=== PATIENT | male | born 1950 | race Caucasian/White ===

== ENCOUNTER 2016-09-18 09:46 | Inpatient (IN) | payer OTHER, MEDICARE ==
[~2016-09-18] VITALS: Ht 170.2 cm; Wt 84.0 kg
[2016-10-17] MEDS ORDERED: SODIUM CHLORIDE 0.9% IV SCH (05:45)
[2016-10-17] MEDS ORDERED: INSULIN HUMAN REGULAR 1,000 UNITS/10 ML VIAL SQ PRN (05:45)
[2016-10-17] MEDS ORDERED: LACTATED RINGER'S 1000 ML IV PRN (05:45)
[2016-10-17] MEDS ORDERED: POVIDONE IODINE 5% (ANTISEPSIS KIT) 4 APPLICATIONS EACH NARE PRN (05:45)
[2016-10-17] MEDS ORDERED: TRANEXAMIC ACID IV SCH (05:45)
[2016-10-17] MEDS ORDERED: CHLORHEXIDINE GLUCONATE 2 % 1 PACK (2 CLOTHS) TOPICAL PRN (05:45)
[2016-10-17] MEDS: CHLORHEXIDINE GLUCONATE 4% SOLN 120 ML BTL TOPICAL SCH (05:45)
[2016-10-17] MEDS ORDERED: VANCOMYCIN 1000 MG/NS 250 ML (for <70 kg) IV SCH ×2 (05:45)
[2016-10-17] MEDS ORDERED: ceFAZolin 2 GM PREMIX 50 ML IV SCH (05:45)
[2016-10-17] MEDS ORDERED: SODIUM CHLORID 0.9% 500 ML IV PRN (05:45)
[2016-10-17] MEDS ORDERED: EXPAREL PERI-ARTICULAR INJECTION (TOTAL VOL. 60 ML) P-ARTICULR SCH ×2 (05:45)
[2016-10-17] MEDS ORDERED: METOPROLOL TARTRATE 25 MG TAB PO PRN (05:45)
[2016-10-17] MEDS ORDERED: HYDR-3533 PO (05:55)
[2016-10-17 05:57] VITALS: BP 150/85; PULSE 55; RESP 20; TEMP 98.1; O2SAT 97
[2016-10-17 06:13] LABS: AUTOMATED NEUTROPHIL # 4.2 TH/MM3 (1.8-7.7); BASOPHIL # 0.1 TH/MM3 (0-0.2); BASOPHIL % 1.1 % (0.0-2.0); EOSINOPHIL # 0.1 TH/MM3 (0-0.4); EOSINOPHIL % 0.9 % (0.0-4.0); HEMATOCRIT 42.4 % (39.0-51.0); HEMO FLAGS DIFF FINAL; LYMPH % 24.9 % (9.0-44.0); LYMPHOCYTE # 1.7 TH/MM3 (1.0-4.8); MEAN CELL VOLUME 85.2 FL (80.0-100.0); MEAN CORPUSCULAR HEMOGLOBIN 30.1 PG (27.0-34.0); MEAN CORPUSCULAR HGB CONC 35.3 % (32.0-36.0); MONO % 9.9 % (0.0-8.0); NEUT % 63.2 % (16.0-70.0); PLATELET COUNT 235 TH/MM3 (150-450); RED BLOOD COUNT 4.98 MIL/MM3 (4.50-5.90); RED CELL DISTRIBUTION WIDTH 15.3 % (11.6-17.2); WHITE BLOOD COUNT 6.7 TH/MM3 (4.0-11.0)
[2016-10-17] MEDS ORDERED: GENTAMICIN SULFATE 80 MG/2 ML VIAL ONE (06:20)
[2016-10-17 06:25] LABS: INTERNATIONAL NORMALIZED RATIO 0.9 RATIO; PROTHROMBIN TIME - PATIENT 10.3 SEC (9.8-11.6)
[2016-10-17 06:30] LABS: BLOOD, URINE NEG (NEG); GLUCOSE,URINE NEG (NEG); KETONE, URINE NEG (NEG); MUCUS URINE FEW /lpf (OCC); NITRITE,URINE NEG (NEG); PH, URINE 6.5 (5.0-8.5); URINE COLOR YELLOW (YELLW/STRAW)
[2016-10-17 06:31] LABS: COMMENT (UR) CULT NOT INDICATED; CULTURE IF INDICATED CULT NOT INDICATED
[2016-10-17] MEDS ORDERED: FAMOTIDINE 20 MG/2 ML VIAL ONE (06:36)
[2016-10-17] MEDS ORDERED: ACETAMINOPHEN 1000 MG/100 ML VIAL IV ONE (06:36)
[2016-10-17] MEDS ORDERED: MIDAZOLAM HCL 2 MG/2 ML VIAL ONE (06:36)
[2016-10-17] MEDS ORDERED: ONDANSETRON HCL 4 MG/2 ML VIAL ONE (06:37)
[2016-10-17 06:51] LABS: BICARBONATE 28.3 MEQ/L (21.0-32.0)
[2016-10-17] MEDS ORDERED: DEXAMETHASONE SOD PHOS 4 MG/ML VIAL ONE (06:52)
--- NOTE | 2016-10-17 09:41 | PD.OP ---
cc: Josias Galindo MD Operative Report Date of Surgery: Oct 17, 2016 Preoperative Diagnosis: Severe right hip osteoarthritis Postoperative Diagnosis: Procedure: Right total hip arthroplasty by anterior approach Anesthesia: Gen. Surgeon: Josias Galindo Informal Waiter/Waitress(s): DON Urrutia PA-C The surgical procedure was assisted by my physician college sports assistant. My P.A. presence was necessary throughout this case for the manipulation and positioning of the surgical extremity. My P.A. was assisting me throughout the duration of this procedure. The skill set of a physician college sports assistant was medically necessary to complete this procedure. During the surgical case the senior pharmacy technician was working at the back table and the physician college sports assistant was directly assisting me. Operation and Findings: PLAN OF ACTIVITY 50% weightbearing right leg DRAINS: 7-mm EFREM drain. IMPLANTS USED DePuy Corail size [13] collared stem with a size [50] Calhoun Gription cup and a [32 +5] ceramic Biolox ceramic head. DETAILS OF PROCEDURE: This patient has a long history of hip pain. Patient was found to have severe osteoarthritis. The patient had radiographic evidence of joint space narrowing with [id number] arthritis and osteophytes around the acetabulum as well as the femoral head. There was also some cystic changes. The patient failed conservative treatment with pain medications, anti-inflammatories, physical therapy, assistive devices including a cane, as well as therapeutic injection of the hip. Patient's hip arthritis was limiting his ability to ambulate and perform activities of daily living. The patient wished to proceed with surgery and informed consent was obtained. Operative site was marked. I discussed both posterior approach and anterior approach with the patient and decision was made for anterior approach. Patient was brought to OR and placed on OR table. IV sedation and general anesthesia was administered by anesthesiologist. Patient positioned on a Katheryn table and was given IV antibiotics. Time-out procedure was performed. The hip and thigh were prepped with alcohol followed by Hibiclens. The thigh was draped in the usual sterile fashion. Clean Air Suite was used for this procedure. The procedure began with a 5-inch incision over the anterolateral thigh. Subcutaneous tissue was dissected with Bovie. The fascia over the tensa fasciae latae was incised. Care was taken to avoid injury to the lateral femoral cutaneous nerve. The tensor muscle was retracted laterally. Sartorius was retracted medially. Retractors were now placed. The reflected head of the rectus is now elevated. A capsulotomy was performed over the anterior head capsule. Sutures were placed to help retract the capsule. At this point the femoral head and neck were identified. With soft tissue protected, oscillating saw was used to make a cut through the femoral neck, the femoral head was now removed. At this point attention was turned to preparation of the acetabulum. The labrum was excised. The acetabulum was sequentially reamed up to size [50]. A Calhoun cup was now placed. Fluoroscopy was used to aid in identification of appropriate version. Cup was fully impacted and found to have excellent fit. Hole eliminator was now placed. The liner was now impacted into the cup. At this point the hip was externally rotated. A hook was placed around the proximal femur. The capsule was released off the lateral and medial femur. The hip was now extended and adducted. Retractors were placed around the proximal femur to allow for exposure. A box osteotome was used to remove the lateral cortex of the femoral neck. A broach was used to help lateralize the prosthesis. Canal finder was used to create a path down the canal. Next, the canal was sequentially broached up to size [13]. This was found to be an excellent fit. Calcar planer was placed. At this point it was noted to have a nondisplaced fracture line extending into the calcar region. At this point soft tissue was carefully retracted. 2 cables were passed around the proximal femur. One cable was placed above the lesser trochanter and a second cable was placed below the lesser trochanter. Cables were tensioned appropriately. A standard head was placed, and the hip was reduced. The hip was found to have excellent stability with good range of motion. The leg lengths were measured under fluoroscopy and found to be equal compared to preoperatively. Trial broach was removed. The size 13 standard Corail stem was opened. Stem was fully impacted into the proximal femur in appropriate version. The femoral head was placed. The hip was again reduced. At this point the cables were fully tensioned, crimped, and cut. Fluoroscopy confirmed excellent alignment of prosthesis. The prosthesis appeared to be stable with excellent fit. The wound was thoroughly irrigated and capsule was closed with #1 Vicryl. The fascia over the tensor fasciae muscle was closed with #1 Vicryl, subcutaneous tissue was closed with 3-0 Vicryl and the skin was closed with paula and Dermabond skin closure. The capsule layers were injected with a mixture of saline and bupivicaine. Dressings were applied. The patient was transferred to Recovery Room in stable condition. Josias Galindo MD Oct 17, 2016 09:41
[2016-10-17] MEDS ORDERED: Post-op Orders (for Pharmacy) MISC XX ONE (09:45)
[2016-10-17] MEDS ORDERED: ONDANSETRON HCL 4 MG/2 ML VIAL IVP PRN (09:45)
[2016-10-17] MEDS ORDERED: SODIUM CHLORIDE 0.9% FLUSH 5 ML FLUSH IVF PRN (09:45)
[2016-10-17] MEDS ORDERED: NALOXONE HCL 0.4 MG/ML AMP IV PRN (09:45)
[2016-10-17] MEDS ORDERED: MORPHINE SULFATE 4 MG/ML INJ IV PUSH PRN (09:45)
[2016-10-17] MEDS ORDERED: DO NOT ADM ANY ANTICOAGULANT DRUGS PRN (10:01)
[2016-10-17] MEDS ORDERED: fentaNYL CITRATE 250 MCG/5 ML AMP ONE (10:14)
[2016-10-17] MEDS ORDERED: MORPHINE SULFATE 4 MG/ML INJ ONE (10:14)
[2016-10-17] MEDS ORDERED: *morphine SULFATE 8 MG/ML PERIprocedure ONLY ONE (10:26)
[2016-10-17] MEDS: LACTATED RINGER'S 1000 ML INJ 1,000 ML IV SCH ×2 (10:30→23:04)
[2016-10-17] MEDS ORDERED: TRANEXAMIC ACID INJ 1,000 MG in SODIUM CHLORIDE 0.9% INJ 100 ML IV ONE (11:00)
--- NOTE | 2016-10-17 11:43 | RADRPT ---
EXAM DATE/TIME: 10/17/2016 11:00 [facility] COMPARISON: No previous studies available for comparison. INDICATIONS : Post operation right hip MEDICAL HISTORY : None. SURGICAL HISTORY : None. ENCOUNTER: Initial ACUITY: 1 day PAIN SCORE: 07/25 LOCATION: Right Hip. FINDINGS: A right total hip arthroplasty is present. There are cerclage wires encircling the proximal femoral s tem. Hardware is intact. Alignment is anatomic. A surgical drain is present. Skin paula are noted l aterally. The visualized pelvis is intact. CONCLUSION: Satisfactory appearance post right ROBIN Vladimir Armstrong MD on October 17, 2016 at 11:41 Board Certified Radiologist. This report was verified electronically.
[2016-10-17] MEDS ORDERED: PROPOFOL 200 MG/20 ML AMP IV ONE (12:00)
[2016-10-17] MEDS ORDERED: ePHEDrine/NS 25 MG/5 ML SYR IV ONE (12:00)
[2016-10-17] MEDS ORDERED: NEOSTIGMINE 3 MG/3 ML SYR IV ONE (12:00)
[2016-10-17] MEDS: ceFAZolin 2 GM PREMIX 50 ML IV SCH ×3 (12:20→23:02)
[2016-10-17] MEDS: KETOROLAC TROMETHAMINE 30 MG/ML (IVP) VIAL IV PUSH SCH ×2 (12:20→23:03)
[2016-10-17 13:03] VITALS: BP 107/71; PULSE 69; RESP 17; TEMP 96.5; O2SAT 97
[2016-10-17] MEDS: VANCOMYCIN INJ 1,000 MG in SODIUM CHLOR 0.9% 250 ML INJ 250 ML IV SCH (13:20)
[2016-10-17] MEDS: oxyCODONE/ACETAMINOPHEN 7.5 MG/325 MG TAB PO PRN ×4 (13:53→23:03)
[2016-10-17 15:43] VITALS: BP 103/67; PULSE 67; RESP 17; TEMP 96.7; O2SAT 95
--- NOTE | 2016-10-17 16:02 | RADRPT ---
EXAM DATE/TIME: 10/17/2016 07:27 [facility] COMPARISON: FLUOROSCOPY PORTABLE UP TO 1HR, October 17, 2016, 0:00. INDICATIONS : Right total hip arthroplasty. OR. MEDICAL HISTORY : None. SURGICAL HISTORY : None. ENCOUNTER: Initial ACUITY: 1 day PAIN SCORE: Non-responsive. LOCATION: Right hip FINDINGS: Intraoperative examination demonstrates right hip arthroplasty. Orthopedic hardware is in excellent p osition. CONCLUSION: 1. Orthopedic hardware in excellent position. Reinaldo Childers MD on October 17, 2016 at 16:00 Board Certified Radiologist. This report was verified electronically.
[2016-10-17 20:20] VITALS: BP 118/69; PULSE 67; RESP 17; TEMP 96.8; O2SAT 96
[2016-10-17] MEDS: SODIUM CHLORIDE 0.9% FLUSH 5 ML FLUSH IVF SCH (21:00)
[2016-10-18] MEDS: VANCOMYCIN INJ 1,000 MG in SODIUM CHLOR 0.9% 250 ML INJ 250 ML IV SCH (00:10)
[2016-10-18] MEDS: CHLORHEXIDINE GLUCONATE 4% SOLN 120 ML BTL TOPICAL SCH (00:12)
[2016-10-18 00:22] VITALS: BP 117/70; PULSE 64; RESP 17; TEMP 97.2; O2SAT 98
[2016-10-18] MEDS: oxyCODONE/ACETAMINOPHEN 7.5 MG/325 MG TAB PO PRN ×7 (02:29→21:05)
[2016-10-18 04:25] VITALS: BP 137/77; PULSE 62; RESP 17; TEMP 97.3; O2SAT 97
--- NOTE | 2016-10-18 06:49 | PD.ORT.PN ---
Subjective Subjective Remarks Pain controlled with no complaints Objective Vitals Vital Signs Date Time Temp Pulse Resp B/P Pulse Ox O2 Delivery O2 Flow Rate FiO2 10/18/16 04:25 97.3 62 17 137/77 97 10/18/16 00:22 97.2 64 17 117/70 98 10/17/16 20:20 96.8 67 17 118/69 96 10/17/16 18:39 Nasal Cannula 2.00 10/17/16 15:43 96.7 67 17 103/67 95 10/17/16 13:03 96.5 69 17 107/71 97 10/17/16 12:00 97.7 80 12 110/75 97 Nasal Cannula 2 10/17/16 11:00 83 10 118/75 97 Nasal Cannula 2 10/17/16 10:45 74 12 135/80 96 Nasal Cannula 2.5 10/17/16 10:30 80 14 116/81 96 Nasal Cannula 2.5 10/17/16 10:15 88 15 143/74 95 Nasal Cannula 2.5 10/17/16 10:00 81 14 150/90 94 Nasal Cannula 2.5 10/17/16 09:56 98.3 88 15 152/88 95 Nasal Cannula 2.5 I/O 10/17/16 10/17/16 10/17/16 10/18/16 10/18/16 10/18/16 07:00 15:00 23:00 07:00 15:00 23:00 Intake Total 600 ml 240 ml 120 ml Output Total 905 ml 570 ml 635 ml Balance -305 ml -330 ml -515 ml Intake Oral 240 ml 120 ml Other 600 ml Output Urine Total 425 ml 500 ml 525 ml Drainage Total 80 ml 70 ml 110 ml Estimated Blood Loss 400 ml # Bowel Movements 0 0 Result Diagram: 10/17/16 0559 10/17/16 0559 Imaging Last 24 hours Impressions Hip and Pelvis X-Ray 10/17/16 0935 Signed Impressions: Service Date/Time: Monday, October 17, 2016 11:00 - CONCLUSION: Satisfactory appearance post right ROBIN Vladimir Armstrong MD Objective Remarks Right lower extremity with clean dressings. Drain intact. Minimal swelling. Intact sensation distally strong dorsiflexion plantar flexion of foot Assessment & Plan Assessment and Plan Right total hip arthroplasty anterior approach POD 1 Physical therapy 50% weightbearing right lower extremity Incentive spirometry Lovenox Case management for plan discharge home with home health care tomorrow Follow-up appointment with Dr. Galindo or PA in 2 weeks Donis Garner Jr. PA Oct 18, 2016 06:49
[2016-10-18 07:13] LABS: HEMATOCRIT 36.1 % (39.0-51.0); REVIEW FLAG FINAL
[2016-10-18 08:00] VITALS: BP 118/71; PULSE 60; RESP 18; TEMP 97.4; O2SAT 92
[2016-10-18] MEDS: ENOXAPARIN SODIUM 40 MG/0.4 ML SYRINGE SQ SCH (08:14)
[2016-10-18] MEDS: SODIUM CHLORIDE 0.9% FLUSH 5 ML FLUSH IVF SCH ×2 (08:17→21:00)
[2016-10-18] MEDS: LACTATED RINGER'S 1000 ML INJ 1,000 ML IV SCH ×2 (10:35→23:05)
[2016-10-18 11:47] VITALS: BP 124/97; PULSE 61; RESP 18; TEMP 97.1; O2SAT 97
[2016-10-18] MEDS: KETOROLAC TROMETHAMINE 30 MG/ML (IVP) VIAL IV PUSH SCH (12:12)
[2016-10-18 15:32] VITALS: BP 145/74; PULSE 58; RESP 19; TEMP 97.2; O2SAT 98
[2016-10-18 20:45] VITALS: BP 131/74; PULSE 59; RESP 16; TEMP 96; O2SAT 94
[2016-10-18] MEDS ORDERED: MAGNESIUM HYDROXIDE SUSP 30 ML CUP PO PRN (21:00)
[2016-10-18] MEDS: DOCUSATE SODIUM 100 MG CAP PO SCH (21:05)
[2016-10-18] MEDS: POLYETHYLENE GLYCOL 17 GM PKG PO SCH (21:53)
[2016-10-19 00:10] VITALS: BP 130/67; PULSE 68; RESP 17; TEMP 97.7; O2SAT 95
[2016-10-19] MEDS: KETOROLAC TROMETHAMINE 30 MG/ML (IVP) VIAL IV PUSH SCH (00:44)
[2016-10-19] MEDS: oxyCODONE/ACETAMINOPHEN 7.5 MG/325 MG TAB PO PRN ×4 (00:47→11:57)
[2016-10-19] MEDS ORDERED: WALKER WHEELS/F1 MIS (06:31)
[2016-10-19] MEDS ORDERED: XARE10TA PO (06:33)
[2016-10-19] MEDS ORDERED: PERC7.5T13 PO (06:33)
--- NOTE | 2016-10-19 06:34 | HHI.FF ---
Face to Face Verification Diagnosis: (1) Status post right hip replacement Physical Therapy Gait training, Safety evaluation Hip: Total hip, Protocol: Right, Posterior hip precautions Right LE Weight Bearing: Partial WB 50% Nursing Dressing Changes: Daily dressing change, Xeroform (begin daily starting POD 10) , Coverderm/Primapore I have seen patient Hernando Cantu on 10/19/16. My clinical findings support the need for the requested home health care services because: Limited ability to care for self I certify that my clinical findings support that this patient is homebound because: Post-op weakness Donis Garner Jr. Oct 19, 2016 06:34
--- NOTE | 2016-10-19 06:39 | PD.ORT.PN ---
Subjective Subjective Remarks POD 2 s/p right ROBIN doing well. out of bed on own. no pain. Objective Vitals Vital Signs Date Time Temp Pulse Resp B/P Pulse Ox O2 Delivery O2 Flow Rate FiO2 10/19/16 00:10 97.7 68 17 130/67 95 10/18/16 22:05 18 10/18/16 20:45 96.0 59 16 131/74 94 10/18/16 19:04 Room Air 10/18/16 15:32 97.2 58 19 145/74 98 10/18/16 11:47 97.1 61 18 124/97 97 10/18/16 08:00 97.4 60 18 118/71 92 10/18/16 07:25 Room Air I/O 10/18/16 10/18/16 10/18/16 10/19/16 10/19/16 10/19/16 07:00 15:00 23:00 07:00 15:00 23:00 Intake Total 120 ml 240 ml 480 ml Output Total 635 ml Balance -515 ml 240 ml 480 ml Intake Oral 120 ml 240 ml 480 ml Output Urine Total 525 ml Drainage Total 110 ml # Voids 1 2 # Bowel Movements 0 0 0 Result Diagram: 10/18/16 0639 10/17/16 0559 Imaging Last 24 hours Impressions Hip and Pelvis X-Ray 10/17/16 0935 Signed Impressions: Service Date/Time: Monday, October 17, 2016 11:00 - CONCLUSION: Satisfactory appearance post right ROBIN Vladimir Armstrong MD Objective Remarks Right lower extremity with clean dressings.Minimal swelling. Intact sensation distally strong dorsiflexion plantar flexion of foot Assessment & Plan Assessment and Plan 1) Right total hip arthroplasty anterior approach POD 2 Physical therapy 50% weightbearing right lower extremity Incentive spirometry Lovenox Case management for plan discharge home with home health care today Follow-up appointment with Dr. Galindo or PA in 2 weeks Tommie Carlson Oct 19, 2016 06:39
--- NOTE | 2016-10-19 06:43 | HHI.DS ---
Discharge Summary Admission Date Oct 17, 2016 at 05:11 Discharge Date: Oct 19, 2016 Admitting Diagnosis right hip OA Diagnosis: (1) Status post right hip replacement Diagnosis: Principal Procedures Right ROBIN - Anterior CBC/BMP: 10/18/16 0639 10/17/16 0559 Significant Findings Laboratory Tests Test 10/17/16 10/17/16 10/18/16 05:50 05:59 06:39 Urine Mucus FEW /lpf (OCC) Monocytes (%) (Auto) 9.9 % (0.0-8.0) Random Glucose 113 MG/DL (74-106) Hemoglobin 12.4 GM/DL (13.0-17.0) Hematocrit 36.1 % (39.0-51.0) PE at Discharge Right lower extremity with clean dressings.Minimal swelling. Intact sensation distally strong dorsiflexion plantar flexion of foot Hospital Course Admitted from outpatient for elective total hip replacement of right hip. Tolerated procedure well. Admitted to . Was out of bed same day of surgery with therapy. Drain was discontinued on POD 1. Pain was controlled, patient was hemodynamically stable, ambulating with minimal assistance, and fit for discharge home with [facility] on POD2. He will remain 50%WB on his right leg, perform daily dressing changes with [facility], keep his incision clean and dry, and follow up in [address] Jusitn or PA in the office. Pt Condition on Discharge: Good Discharge Disposition: Disch w/ Home Health Serv Discharge Instructions Diet Instructions: As Tolerated, No Restrictions Activities You Can Perform: Partial Weight Bearing Follow up Referrals: SNF/[facility]/HH with [facility] New Medications: Oxycodone-Acetaminophen (Percocet) 7.5-325 mg Tab 1 TAB PO Q4H PRN PAIN #60 Ref 0 TAB Rivaroxaban (Xarelto) 10 Mg Tab 10 MG PO DAILY Blood Clot Prevention #14 Ref 0 TAB Walker with Front Wheels (Walker with Front Wheels) 1 Mis Mis 1 EA .ROUTE DIRECTED #1 Ref 0 EA Tommie Carlson Oct 19, 2016 06:43
[2016-10-19] MEDS: DOCUSATE SODIUM 100 MG CAP PO SCH (08:23)
[2016-10-19] MEDS: POLYETHYLENE GLYCOL 17 GM PKG PO SCH (08:23)
[2016-10-19] MEDS: ENOXAPARIN SODIUM 40 MG/0.4 ML SYRINGE SQ SCH (08:23)
[2016-10-19] MEDS: SODIUM CHLORIDE 0.9% FLUSH 5 ML FLUSH IVF SCH (08:24)
[2016-10-19] MEDS: LACTATED RINGER'S 1000 ML INJ 1,000 ML IV SCH (08:24)
[2016-10-19 08:40] VITALS: BP 116/62; PULSE 58; RESP 16; TEMP 97.6; O2SAT 95
== END 2016-10-19 12:32 | disposition home health service (06) | DRG 470 ==
LOC: HSDI 10-17 05:11 → N06B 10-17 12:57
PROVIDERS: ADMIT Orthopaedic Surgery Orthopaedic Trauma; ATTEND Orthopaedic Surgery Orthopaedic Trauma
PROC: 0QH604Z Insertion of Internal Fixation Device into Right Upper Femur, Open Approach (ICD-10-PCS; 2016-10-17)
PROC: 0SR904Z Replacement of Right Hip Joint with Ceramic on Polyethylene Synthetic Substitute, Open Approach (ICD-10-PCS; principal; 2016-10-17 06:55)
DX: M16.11 Unilateral primary osteoarthritis, right hip (principal); M96.661 Fracture of femur following insertion of orthopedic implant, joint prosthesis, or bone plate, right leg; Z87.891 Personal history of nicotine dependence; F12.90 Cannabis use, unspecified, uncomplicated
CPT/HCPCS: 73501; 73502; 76000; 80048; 81001; 85014; 85018; 85025; 85610; 85730; 86850; 86900; 86901; C1713; C1776; C9290; J0131; J0690; J1100; J1580; J1650; J1885; J2250; J2270; J2405; J2710; J3010; J3370; J7050; J7120

== ENCOUNTER → 2016-10-09 | Outpatient (CLI) | payer OTHER ==
[~2016-10-09] MED LIST: CYCL-36 PO; HYDR-3533 PO; LORT5TAB PO; PERC7.5T13 PO; PRED20 PO; WALKER WHEELS/F1 MIS; XARE10TA PO; Z.0.NO CURRENT MEDS
== END ==
LOC: CPRE 08:30
PROVIDERS: ATTEND Orthopaedic Surgery Orthopaedic Trauma
DX: M79.609 Pain in unspecified limb (principal)